=== PATIENT | female | born 1975 | race Caucasian/White ===

== ENCOUNTER 2016-10-08 13:58 | Emergency (ER) | payer MEDICAID, OTHER ==
[~2016-10-08] VITALS: Ht 167.6 cm; Wt 98.8 kg
[2016-10-08 14:05] VITALS: BP 151/102; PULSE 107; RESP 20; TEMP 98.4; O2SAT 96
[2016-10-08 14:37] LABS: GLUCOSE,URINE NEG (NEG); KETONE, URINE NEG (NEG); NITRITE,URINE NEG (NEG); PH, URINE 5.5 (5.0-8.5)
[2016-10-08 14:41] LABS: BLOOD, URINE MOD (NEG)
--- NOTE | 2016-10-08 14:50 | PD ---
HPI Chief Complaint: Complaint Time Seen by Provider: 14:48 Travel History International Travel<30 days: No Contact w/Intl Traveler<30days: No Traveled to known affect area: No History of Present Illness HPI 41-year-old female that presents to the ED for evaluation of dysuria and itchiness in the groin. Per patient's only when she urinates. She's been using Monistat with minimal relief. She believes she might have a yeast infection but she's never had one before. She denies any vaginal discharge. She denies . No abdominal pain. No urgency or polyuria. Per patient she does have some burning when she urinates. No allergies to medication. No STD exposure. No other medical issues. PFSH Past Medical History ?: Not Past Surgical History Section: Yes (X2) Other Surgery: Yes (BACK SURG) Social History Alcohol Use: No Tobacco Use: Yes Substance Use: No Allergies-Medications (Allergen,Severity, Reaction): Coded Allergies: No Known Allergies (Unverified , 10/08/16) Reported Meds & Prescriptions Reported Meds & Active Scripts Active Fluconazole 150 Mg Tab 150 Mg PO ONCE Bactrim DS (Sulfamethoxazole-Trimethoprim) 800-160 Mg Tab 1 Tab PO BID 7 Days Review of Systems Except as stated in HPI: all other systems reviewed are Neg Physical Exam Narrative GENERAL: SKIN: Warm and dry. HEAD: Atraumatic. Normocephalic. EYES: Pupils equal and round. No scleral icterus. No injection or drainage. ENT: No nasal bleeding or discharge. Mucous membranes pink and moist. Tongue is midline. No uvula deviation. NECK: Trachea midline. No JVD. CARDIOVASCULAR: Regular rate and rhythm. RESPIRATORY: No accessory muscle use. Clear to auscultation. Breath sounds equal bilaterally. GASTROINTESTINAL: Abdomen soft, non-tender, nondistended. Hepatic and splenic margins not palpable. No CVA tenderness. MUSCULOSKELETAL: Extremities without clubbing, cyanosis, or edema. No obvious deformities. Full range of motion of the upper and lower extremities bilaterally. 2+ pulses bilaterally. NEUROLOGICAL: Awake and alert. No obvious cranial nerve deficits. Motor grossly within normal limits. Five out of 5 muscle strength in the arms and legs. Normal speech. PSYCHIATRIC: Appropriate mood and affect; insight and judgment normal. Data Data Last Documented VS Vital Signs Date Time Temp Pulse Resp B/P Pulse Ox O2 Delivery O2 Flow Rate FiO2 10/08/16 14:05 98.4 107 20 151/102 96 Orders Urinalysis - C+S If Indicated (10/08/16 14:20) Urine Culture (10/08/16 14:30) Labs Laboratory Tests Test 10/08/16 14:30 Urine Color YELLOW Urine Turbidity CLOUDY Urine pH 5.5 Urine Specific [place] 1.030 Urine Protein NEG mg/dL Urine Glucose (UA) NEG mg/dL Urine Ketones NEG mg/dL Urine Occult Blood MOD Urine Nitrite NEG Urine Bilirubin NEGATIVE Urine Leukocyte Esterase TRACE Urine WBC 3-5 /hpf Urine Squamous Epithelial 0-5 /hpf Cells Urine Calcium Oxalate Crystals MANY /hpf Urine Bacteria MOD /hpf Microscopic Urinalysis Comment CULTURE INDICATED MDM Medical Decision Making Medical Screen Exam Complete: Yes Emergency Medical Condition: Yes Medical Record Reviewed: Yes Interpretation(s) UA shows blood, bacteria, leuk esterase and calcium crystals. Differential Diagnosis UTI versus candidiasis versus cystitis versus vaginitis Narrative Course 41-year-old female that presents to the ED for evaluation of possible yeast infection. Patient was properly examined and was found to have signs and symptoms which appeared to be more consistent with possible UTI. We'll do urine. Urine did show bacteria and signs of UTI. Patient was reassured. This time and think that most of her symptoms are likely more related to UTI. All symptoms are related to urinating and not to discharge. Patient agrees with this plan. Patient was treated with Bactrim for infection prophylaxis. We will cover her with fluconazole to cover for yeast he patient does have yeast infection at that this appears to be less likely. I do recommend that his symptoms do not improve in the next week she is to come back to get reevaluated follow with her doctor. She agrees and understands this plan. See ED worsening symptoms. Diagnosis Primary Impression: UTI (urinary tract infection) Qualified Code: N30.01 - Acute cystitis with hematuria Patient Instructions: General Instructions Additional Instructions: Take medications as prescribed. Follow with PCP. See ED worsening symptoms. Med/Other Pt SpecificInfo: Prescription(s) given Scripts Fluconazole 150 Mg [id number] Mg PO ONCE #1 TAB Ref 0 Prov:Teena Casas MD 10/08/16 Sulfamethoxazole-Trimethoprim (Bactrim DS)800-160 Mg Tab1 Tab PO BID 7 Days Prov:Teena Casas MD 10/08/16 Disposition: 01 DISCHARGE HOME Condition: Stable Omer Le Oct 08, 2016 14:50
[2016-10-08 15:02] LABS: URINE COLOR YELLOW (YELLW/STRAW)
[2016-10-08 15:05] LABS: BACTERIA, URINE MOD /hpf; CALCIUM OXALATE CRYSTALS,URINE MANY /hpf; COMMENT (UR) CULTURE INDICATED; CULTURE IF INDICATED CULTURE INDICATED; SQUAMOUS EPITHELIAL CELL URINE 0-5 /hpf (0-5)
[2016-10-08] MEDS ORDERED: BACT800T5 PO (15:09)
[2016-10-08] MEDS ORDERED: FLUC150T PO (15:09)
== END 2016-10-08 15:18 | disposition home or self-care (01) ==
LOC: PHEFT 13:58
DX: N30.01 Acute cystitis with hematuria (principal); L29.9 Pruritus, unspecified; Z72.0 Tobacco use
CPT/HCPCS: 81001; 87086; 99284

== ENCOUNTER 2016-10-11 06:58 | Emergency (ER) | payer MEDICAID, OTHER ==
[~2016-10-11] VITALS: Ht 167.6 cm; Wt 97.7 kg
[~2016-10-11 06:58] MED LIST: BACT800T5 PO; FLUC150T PO
[2016-10-11 07:05] VITALS: BP 157/101; PULSE 99; RESP 16; TEMP 98.3; O2SAT 96
--- NOTE | 2016-10-11 07:15 | PD ---
HPI Chief Complaint: Complaint Time Seen by Provider: 07:13 Travel History International Travel<30 days: No Contact w/Intl Traveler<30days: No Traveled to known affect area: No History of Present Illness HPI 41-year-old female with history of no significant past medical issues, presents to the ER today with several days' history of burning on urination, was seen a few days ago and diagnosed with UTI and has been on Bactrim. However, she states that she is now having whitish vaginal discharge and states that it feels similar to when she had Trichomonas. She denies any new sexual activity, had been treated for trichomonas several months ago. She denies any fevers, vomiting, or other symptoms. Modifying Factors: None Associated Signs & Symptoms: Dysuria, vaginal discharge Risk Factors: Recent UTI diagnosis not improving PFSH Past Medical History Diminished Hearing: No Tetanus Vaccination: Unknown ?: Not Past Surgical History Section: Yes (X2) Gynecologic Surgery: Yes (TUBAL) Other Surgery: Yes (BACK SURG) Social History Alcohol Use: No Tobacco Use: Yes Substance Use: No Allergies-Medications (Allergen,Severity, Reaction): Coded Allergies: No Known Allergies (Unverified , 10/11/16) Reported Meds & Prescriptions Reported Meds & Active Scripts Active Bactrim DS (Sulfamethoxazole-Trimethoprim) 800-160 Mg Tab 1 Tab PO BID 7 Days Review of Systems Except as stated in HPI: all other systems reviewed are Neg Physical Exam Narrative GENERAL: Well-developed middle age white female patient currently in no acute distress. Awake and oriented 3. SKIN: Focused skin assessment warm/dry. HEAD: Atraumatic. Normocephalic. EYES: Pupils equal and round. No scleral icterus. No injection or drainage. ENT: No nasal bleeding or discharge. Mucous membranes pink and moist. NECK: Trachea midline. No JVD. CARDIOVASCULAR: Regular rate and rhythm. No murmur appreciated. RESPIRATORY: No accessory muscle use. Clear to auscultation. Breath sounds equal bilaterally. GASTROINTESTINAL: Abdomen soft, non-tender, nondistended. Hepatic and splenic margins not palpable. GENITOURINARY: Normal external genitalia without lesions or erythema. Vaginal vault without blood but is notable for whitish greenish drainage. Cervical os was closed without drainage. No cervical motion tenderness. Uterus nontender and nonenlarged. Bilateral adnexa nontender without masses. MUSCULOSKELETAL: No obvious deformities. No clubbing. No cyanosis. No edema. NEUROLOGICAL: Awake and alert. No obvious cranial nerve deficits. Motor grossly within normal limits. Normal speech. PSYCHIATRIC: Appropriate mood and affect; insight and judgment normal. Data Data Last Documented VS Vital Signs Date Time Temp Pulse Resp B/P Pulse Ox O2 Delivery O2 Flow Rate FiO2 10/11/16 07:05 98.3 99 16 157/101 96 Orders Urinalysis - C+S If Indicated (10/11/16 07:09) Gc And Chlamydia Pcr (10/11/16 07:13) Wet Prep Profile (10/11/16 07:13) Ed Urine Pregnancytest Poc (10/11/16 07:13) Labs Laboratory Tests Test 10/11/16 07:20 Urine Collection Type VOIDED Urine Color YELLOW Urine Turbidity SLIGHT Urine pH 6.0 Urine Specific [place] 1.020 Urine Protein NEG mg/dL Urine Glucose (UA) NEG mg/dL Urine Ketones NEG mg/dL Urine Occult Blood MOD Urine Nitrite NEG Urine Bilirubin NEG Urine Leukocyte Esterase MOD Urine WBC 3-5 /hpf Urine Squamous Epithelial >8 /hpf Cells Urine Uric Acid Crystals FEW /hpf Urine Bacteria FEW /hpf Urine Trichomonas FEW Microscopic Urinalysis Comment CULT NOT INDICATED MDM Medical Decision Making Medical Screen Exam Complete: Yes Emergency Medical Condition: Yes Medical Record Reviewed: Yes Interpretation(s) Laboratory Tests Test 10/11/16 07:20 Urine Occult Blood MOD (NEG) Urine Leukocyte Esterase MOD (NEG) Urine Uric Acid Crystals FEW /hpf (NONE) Urine Bacteria FEW /hpf (NONE) Urine Trichomonas FEW (NONE) Differential Diagnosis Dysuria, vaginal dischargevaginitis versus UTI versus yeast infection Narrative Course Urine is positive for Trichomonas. Exam is also consistent with Trichomonas. My plan would be to give her treatment and have her follow-up with primary care physician or [employer] as needed. Return for any worsening in symptoms. The plan has discussed with her and she states understanding. Diagnosis Primary Impression: Trichomonas vaginitis Med/Other Pt SpecificInfo: Prescription(s) given Scripts Metronidazole 500 Mg [id number] Mg PO BID 7 Days Ref 0 Prov:Teena Casas MD 10/11/16 Disposition: 01 DISCHARGE HOME Condition: Stable Teena Casas MD Oct 11, 2016 07:15
[2016-10-11 07:26] LABS: GLUCOSE,URINE NEG (NEG); KETONE, URINE NEG (NEG); NITRITE,URINE NEG (NEG)
[2016-10-11 07:29] LABS: BLOOD, URINE MOD (NEG)
[2016-10-11 07:34] LABS: METHOD OF COLLECTION VOIDED; URINE COLOR YELLOW (YELLW/STRAW)
[2016-10-11 07:35] LABS: BACTERIA, URINE FEW /hpf; SQUAMOUS EPITHELIAL CELL URINE >8 /hpf (0-5); URIC ACID CRYSTALS, URINE FEW /hpf
[2016-10-11 07:36] LABS: COMMENT (UR) CULT NOT INDICATED; CULTURE IF INDICATED CULT NOT INDICATED
[2016-10-11] MEDS ORDERED: METR500T10 PO (07:50)
[2016-10-11 12:43] LABS: CHLAMYDIA PCR NOT DETECTED (NOT DETECT); NEISSERIA PCR NOT DETECTED (NOT DETECT)
== END 2016-10-11 07:57 | disposition home or self-care (01) ==
LOC: PHED 06:58
DX: A59.01 Trichomonal vulvovaginitis (principal)
CPT/HCPCS: 81001; 84703; 87210; 87491; 87591; 99283